=== PATIENT | female | born 1955 | race Asian ===

== ENCOUNTER → 2016-12-06 | Outpatient (CLI) | payer OTHER ==
[~2016-12-06] MED LIST: GLIM4TAB PO; LISI1TAB7 PO; METF500T4 PO; METO10TA82 PO; OXYC-223 PO; PIOG45TA7 PO; SIMV40TA PO; SITA100T PO
== END | disposition home or self-care (01) ==
LOC: RAD 13:45
PROVIDERS: ATTEND Family Medicine
DX: M25.741 Osteophyte, right hand (principal)

== ENCOUNTER → 2018-02-28 | Outpatient (CLI) | payer OTHER ==
[~2018-02-28] MED LIST changes: +ASPI-515 PO; +INSU100V13 HOMEINJ; +LINA5TAB PO; +METF500T17 PO; -METF500T4 PO; +OMNIPAQUE 350 MG/ML, 100ML BOTTLE ONE; -OXYC-223 PO; +OXYC-306 PO; +PIOG45TA20 PO; -PIOG45TA7 PO; +REPA1TAB6 PO
== END | disposition home or self-care (01) ==
LOC: CFH 12:46
PROVIDERS: ATTEND Specialist
DX: C77.9 Secondary and unspecified malignant neoplasm of lymph node, unspecified (principal); C56.1 Malignant neoplasm of right ovary
CPT/HCPCS: 71260; 74177; Q9967

== ENCOUNTER 2019-05-10 08:03 | Outpatient (CLI) | payer MEDICAID, OTHER ==
[~2019-05-10 08:03] MED LIST changes: +LISI1TAB20 PO; -LISI1TAB7 PO; -OMNIPAQUE 350 MG/ML, 100ML BOTTLE ONE
[2019-05-10] MEDS ORDERED: GADOTERATE 10 MMOL/20 ML VIAL ONE (08:30)
== END 2019-05-10 23:59 | disposition home or self-care (01) ==
LOC: CFH 08:03
PROVIDERS: ATTEND Physician Assistant
DX: C56.9 Malignant neoplasm of unspecified ovary (principal); C56.1 Malignant neoplasm of right ovary; R97.1 Elevated cancer antigen 125 [CA 125]; Z51.12 Encounter for antineoplastic immunotherapy; Z15.02 Genetic susceptibility to malignant neoplasm of ovary
CPT/HCPCS: 77049; A9575; C8937; C8908

== ENCOUNTER → 2020-03-12 | Outpatient (CLI) | payer MEDICAID ==
[~2020-03-12] MED LIST changes: +OMNIPAQUE 350 MG/ML, 100ML BOTTLE ONE
== END | disposition home or self-care (01) ==
LOC: CFH 07:30
PROVIDERS: ATTEND Specialist
DX: Z51.12 Encounter for antineoplastic immunotherapy (principal); K76.0 Fatty (change of) liver, not elsewhere classified; C56.1 Malignant neoplasm of right ovary; C56.9 Malignant neoplasm of unspecified ovary; R97.1 Elevated cancer antigen 125 [CA 125]; Z15.02 Genetic susceptibility to malignant neoplasm of ovary
CPT/HCPCS: 71260; 74177; Q9967